=== PATIENT | male | born 1955 | race Caucasian/White ===

== ENCOUNTER → 2019-12-30 13:33 | Outpatient (BNVA) | payer MEDICARE, MEDICAID, SELFPAY | PROVIDERS: Visit Provider Family Medicine Adult Medicine | DX: M54.12 Radiculopathy, cervical region (principal); M47.816 Spondylosis without myelopathy or radiculopathy, lumbar region; Z79.891 Long term (current) use of opiate analgesic | CPT/HCPCS: 99214 ==

== ENCOUNTER → 2020-02-01 13:42 | Outpatient (BNVA) | payer MEDICARE, MEDICAID, SELFPAY | PROVIDERS: PCP Nurse Practitioner Family; Visit Provider Family Medicine Adult Medicine | DX: M47.816 Spondylosis without myelopathy or radiculopathy, lumbar region (principal); Z79.891 Long term (current) use of opiate analgesic | CPT/HCPCS: 99212 ==

== ENCOUNTER 2020-02-18 10:45 | Day surgery (SDC) | payer MEDICARE, MEDICAID, SELFPAY ==
[2020-02-15 09:26] VITALS: BMI 28.3
--- NOTE | 2020-02-17 09:06 | HO.ANESPROP2 ---
Documented by User: Lisa White 02/17/20 09:07 HPI - Anesthesia Eval Consult details Narrative: 64yo M for Diagnostic Medial Branch Block, Levels L3,L4,DR,L5 (BILATERAL) [facility] Past Medical History Medical History Cervical radiculopathy COPD (chronic obstructive pulmonary disease) Depression GERD (gastroesophageal reflux disease) Lumbar spondylosis Family History Family History Father Asthma Mother Cancer Son No problems noted. Brother Alive and well Brother Alive and well Brother Alive and well Brother Alive and well Brother Alive and well Brother Alive and well Brother Alive and well Sister Alive and well Sister Alive and well Sister Alive and well Surgical History Surgical History H/O colonoscopy History of lung biopsy Hx of inguinal hernia repair Hx of umbilical hernia repair Social History Social History Household Members: Spouse Alcohol intake: never Smoking Status: Former smoker Tobacco Type: Cigarette Smoked in Last 30 Days: No Smoking Quit Date: age 43 Use of substances other than those prescribed or required for medical reasons: No Advance Directives Information Provided: No Recently lost weight without trying: No Meds Allergies Allergy/AdvReac Type Severity Reaction Status Date / Time cyclobenzaprine Allergy Intermediate Confusion Verified 02/15/20 09:36 [From Flexeril] Home Medications Medication Instructions Recorded Confirmed Type duloxetine 30 mg capsule,delayed 30 mg PO DAILY 12/27/19 02/15/20 History release fluoxetine 40 mg capsule 40 mg PO DAILY 12/27/19 02/15/20 History omeprazole 40 mg capsule,delayed 40 mg PO DAILY 12/27/19 02/15/20 History release oxcarbazepine 300 mg tablet 300 mg PO BID 12/27/19 02/18/20 History albuterol sulfate [ProAir HFA] 2 puff INHALATION Q4-6H PRN 02/15/20 02/15/20 History fluticasone propionate [Flovent 2 puff PO BID 02/15/20 02/18/20 History HFA] oxycodone-acetaminophen 1 tab PO Q8H 02/15/20 02/18/20 History Exam Exam Date and Time: February 17, 2020905 Height,Weight and Vital Signs: Height 5 ft 9 in Weight 87.09 kg Assessment and Plan Assessment Anesthesia Assessment: Chart Reviewed Documented by User: Florentin Mccarthy MD 02/18/20 13:22 [facility] Past Medical History Medical History Cervical radiculopathy COPD (chronic obstructive pulmonary disease) Depression GERD (gastroesophageal reflux disease) Lumbar spondylosis Family History Family History Father Asthma Mother Cancer Son No problems noted. Brother Alive and well Brother Alive and well Brother Alive and well Brother Alive and well Brother Alive and well Brother Alive and well Brother Alive and well Sister Alive and well Sister Alive and well Sister Alive and well Surgical History Surgical History H/O colonoscopy History of lung biopsy Hx of inguinal hernia repair Hx of umbilical hernia repair Social History Social History Household Members: Spouse Alcohol intake: never Smoking Status: Former smoker Tobacco Type: Cigarette Smoked in Last 30 Days: No Smoking Quit Date: age 43 Use of substances other than those prescribed or required for medical reasons: No Advance Directives Information Provided: No Recently lost weight without trying: No Meds Allergies Allergy/AdvReac Type Severity Reaction Status Date / Time cyclobenzaprine Allergy Intermediate Confusion Verified 02/15/20 09:36 [From Flexeril] Home Medications Medication Instructions Recorded Confirmed Type duloxetine 30 mg capsule,delayed 30 mg PO DAILY 12/27/19 02/15/20 History release fluoxetine 40 mg capsule 40 mg PO DAILY 12/27/19 02/15/20 History omeprazole 40 mg capsule,delayed 40 mg PO DAILY 12/27/19 02/15/20 History release oxcarbazepine 300 mg tablet 300 mg PO BID 12/27/19 02/18/20 History albuterol sulfate [ProAir HFA] 2 puff INHALATION Q4-6H PRN 02/15/20 02/15/20 History fluticasone propionate [Flovent 2 puff PO BID 02/15/20 02/18/20 History HFA] oxycodone-acetaminophen 1 tab PO Q8H 02/15/20 02/18/20 History Exam Airway Mallampati Class: II TM Dist: >3cm Neck ROM: Limited Denture: Upper Heart: rrr Assessment and Plan Assessment Anesthesia Assessment: Anesthesia Plan Discussed and Chart Reviewed Final Anesthetic Review NPO: Yes ASA Class: III Final Preanesthetic Review: No Changes in Pt Med Stat, Meds/Allgs Chart Reviewed, Consent Obtained/Reviewed and Anes Risks/Benef Reviewed Patient Risk: Intermediate Procedure Risk: Low Anesthetic Plan Anesthetic Plan: MAC: Disposition: Standard PACU
--- NOTE | 2020-02-18 08:11 | MHC.SHP ---
Pre-Procedural Eval Section A The patient is an INPATIENT: No The History & Physical has been completed within 30 days and I have reviewed it.: No Section B Chief Complaint: Lumbar Spondylosis Details of Present Illness: As above Relevant Family History (Specify if Yes): No Relevant Social History: None Present Medications: None Medical History: No relevant PMH History of Previous Operations: No relevant previous surgery Allergies: Allergies Allergy/AdvReac Type Severity Reaction Status Date / Time cyclobenzaprine Allergy Intermediate Confusion Verified 02/15/20 09:36 [From Flexeril] Review of Systems Sugical H&P ROS: Negative: Constitution, Cardiovascular, Respiratory, Neurological, Psychiatric, Hem-Onc, Allergic/Immunologic, Gastrointestinal, Genitourinary, Musculoskeletal, Integumentary, Endocrine and Eyes/Ears/Nose/Throat Exam Surgical H&P Exam: Normal: HEENT, Normal: Heart, Normal: Lungs, Normal: Extremities, Normal: Abdomen, Normal: Skin and Normal: Neurological Plan Diagnosis/Plan: Unchanged Patient has been examined and remains a candidate for the planned procedure
--- NOTE | 2020-02-18 08:12 | PM.OP ---
Brief Operative Note Date of Service: 02/18/20 Pre-op diagnosis: spondylosis lumbar spine Post-op diagnosis: same Procedure: diagnostic medial branch block L3-L4 dorsal ramus L5 Implants: none Surgeon: Ramesh Ibarra MD Anesthesia: MAC Estimated blood loss (mL): 0 Pathology: none sent Disposition: PACU
--- NOTE | 2020-02-18 08:13 | W.PM.OPN ---
Operative Note Operative Note Date of Service: 02/18/20 Narrative: Informed consent was explained to the patient. All questions were explained and answered. The patient was taken inside the operating room where she was positioned prone on the operating table. [place] [employer] monitors were applied. Patient was deeply sedated. Opioids were avoided during the sedation. The patient was taken inside of the operating room where she was positioned prone operating table. Time-out was performed delineating correct site, side, the nature of the procedure, patient's allergy, preoperative antibiotic if needed. All operating room staff was participating in OR time-out procedure. The lower back was prepped with ChloraPrep and draped with sterile towels. Sterilely draped C-arm was brought over the operating field and sq picture of L4-and L5 vertebra and S1 AREA were delineated on the screen. Point of interest were delineated as connection of superior articular process of L4 and L5 vertebra bilaterally with corresponding transverse processes as well as connection of the sacral alae bilaterally with superior articular process of S1. The projection of the point of interest to the skin were injected with the small amount of local anesthetic lidocaine 2% 1-1.5 cc. After that 22 gauge regular spinal needles were driven to the point of interest in tunnel vision fashion. After needles gently contacted the bone at the point of interests the needle was injected with small amount of bupivacaine 0.5%-1cc. Upon completion of the injections needles were removed and sterile dressings were applied patient was awaken and taking outside of the operating room to recovery room where she recovered uneventfully. She went home without immediate complications.
--- NOTE | 2020-02-18 08:14 | P.HPSUR_ITS ---
Pre-Procedural Eval Section B Chief Complaint: Lumbar Spondylosis Details of Present Illness: as above Relevant Family History (Specify if Yes): No Relevant Social History: None Present Medications: None Medical History: No relevant PMH Allergies: Allergies Allergy/AdvReac Type Severity Reaction Status Date / Time cyclobenzaprine Allergy Intermediate Confusion Verified 02/15/20 09:36 [From Flexeril] Review of Systems Sugical H&P ROS: Negative: Constitution, Cardiovascular, Respiratory, Neurological, Psychiatric, Hem-Onc, Allergic/Immunologic, Gastrointestinal, Genitourinary, Musculoskeletal, Integumentary, Endocrine and Eyes/Ears/Nose/Throat Exam Surgical H&P Exam: Normal: HEENT, Normal: Heart, Normal: Lungs, Normal: Extrem ities, Normal: Abdomen, Normal: Skin and Normal: Neurological Plan Diagnosis/Plan: Unchanged Patient has been examined and remains a candidate for the planned procedure
[2020-02-18 11:30] VITALS: BP 129/70; PULSE 60; RESP 16; TEMP 36.5; O2SAT 94
[2020-02-18] MEDS: Lactated Ringers 1,000 ML 100 ML IVCONT (11:50)
--- NOTE | 2020-02-18 13:00 | FL_ITS ---
EXAMINATION: XR FLUOROSCOPY WITH IMAGES CLINICAL INFORMATION: Diagnostic medial branch blocks. COMPARISON: None. TECHNIQUE: Fluoroscopy performed by Dr. Ramesh Ibarra. Fluoroscopy time: 0.6 minutes DAP: 8.8 Gycm2 Images: 6 FINDINGS: There are bilateral spinal needles overlying outer aspect bilateral L3, L4, and L5 neural foramina. There is contrast seen in the respective nerve sheaths with some transforaminal epidural extension. No vascular communication. FL/FL guidance in OR IMPRESSION: Fluoroscopy for pain management procedures.
[2020-02-18 13:33] VITALS: BP 117/70; PULSE 63; RESP 12; TEMP 36.3; O2SAT 97
--- NOTE | 2020-02-18 13:37 | PM.OP ---
Brief Operative Note Date of Service: 02/18/20 Pre-op diagnosis: spondylosis lumbar spine Post-op diagnosis: same Procedure: bilateral L3-L4 dorsal ramus L5 medial branch block diagnostic with Marcaine 0.5% no steroids Implants: none Surgeon: Ramesh Ibarra MD Anesthesia: MAC Estimated blood loss (mL): 0 Condition: stable Disposition: PACU
--- NOTE | 2020-02-18 13:38 | W.PM.OPN ---
Operative Note Operative Note Date of Service: 02/18/20 Narrative: after obtaining informed consent patient was taking side the operating room where he was positioned prone on the operating table. [employer] [place] [employer] monitors were applied patient was deeply sedated. Time-out was performed delineating The patient's name date of correct site and side of the procedure need for antibiotics risk of fire.. All operating room staff was participating timeout. Lower back of the patient was prepped with ChloraPrep and draped with utility drapes. C-arm was brought over the operating field and sq picture of L4 and L5 vertebra as were demonstrated on the screen. The point of interest were delineated as connection of superior articular processes of L4 bilaterally with corresponding transverse process as well as connection of superior articular process of L5 bilaterally with corresponding transverse process as well as connection of the superior articular process of S1 bilaterally with sacral alae . The injection of the small amount of lidocaine to the skin in the projection of the point of interest to the skin was performed. After that 22 gauge 3-1/2 inch needle was driven to were the points of interests in tunnel vision fashion. When needle gently contacted the bone contrast injection was performed delineating no intra thecal and no intravascular injection of the contrast. After that small amount of bupivacaine 0.5% no more than 1 cc was injected into each needle position. upon completion of the injections needle was withdrawn and sterile dressing was applied. The patient tolerated procedure well. He was taking outside of the operating room to PACU where he recovered uneventfully. He went home without immediate complications.
[2020-02-18 13:48] VITALS: BP 133/68; PULSE 61; RESP 16; O2SAT 97
[2020-02-18 14:03] VITALS: BP 133/77; PULSE 60; RESP 16; TEMP 36.1; O2SAT 95
--- NOTE | 2020-02-18 16:36 | P.OP_ITS ---
Operative Note Operative Note Date of Service: 02/18/20 Narrative: Informed consent was explained to the patient. All questions were explained and answered. The patient was taken inside the operating room where she was positioned prone on the operating table. [place] [employer] monitors were applied. Patient was deeply sedated. Opioids were avoided during the sedation. The patient was taken inside of the operating room where she was positioned prone operating table. Time-out was performed delineating correct site, side, the nature of the procedure, patient's allergy, preoperative antibiotic if needed. All operating room staff was participating in OR time-out procedure. The lower back was prepped with ChloraPrep and draped with sterile towels. Sterilely draped C-arm was brought over the operating field and sq picture of L4-and L5 vertebra and S1 AREA were delineated on the screen. Point of interest were delineated as connection of superior articular process of L4 and L5 vertebra bilaterally with corresponding transverse processes as well as connec tion of the sacral alae bilaterally with superior articular process of S1. The projection of the point of interest to the skin were injected with the small amount of local anesthetic lidocaine 2% 1-1.5 cc. After that 22 gauge regular spinal needles were driven to the point of interest in tunnel vision fashion. After needles gently contacted the bone at the point of interests the needle was injected with small amount of bupivacaine 0.5%-1cc. Upon completion of the injections needles were removed and sterile dressings were applied patient was awaken and taking outside of the operating room to recovery room where she recovered uneventfully. She went home without immediate complications.
--- NOTE | 2020-02-18 16:36 | MHC.SHP ---
Pre-Procedural Eval Section B Chief Complaint: Lumbar Spondylosis Allergies: Allergies Allergy/AdvReac Type Severity Reaction Status Date / Time cyclobenzaprine Allergy Intermediate Confusion Verified 02/15/20 09:36 [From Flexeril] Plan Patient has been examined and remains a candidate for the planned procedure
--- NOTE | 2020-02-18 16:38 | W.PM.OPN ---
Operative Note Operative Note Date of Service: 02/18/20 Narrative: Informed consent was explained to the patient. All questions were explained and answered. The patient was taken inside the operating room where he was positioned prone on the operating table. [place] [employer] monitors were applied. Patient was deeply sedated. Opioids were avoided during the sedation. Time-out was performed delineating correct site, side, the nature of the procedure, patient's allergy, preoperative antibiotic if needed. All operating room staff was participating in OR time-out procedure. The lower back was prepped with ChloraPrep and draped with sterile towels. Sterilely draped C-arm was brought over the operating field and sq picture of L4-and L5 vertebra and S1 AREA were delineated on the screen. Point of interest were delineated as connection of superior articular process of L4 and L5 vertebra bilaterally with corresponding transverse processes as well as connection of the sacral alae bilaterally with superior articular process of S1. The projection of the point of interest to the skin were injected with the small amount of local anesthetic lidocaine 2% 1 cc. After that 22 gauge regular spinal needles were driven to the point of interest in tunnel vision fashion. After needles gently contacted the bone at the point of interests the needle was injected with small amount of bupivacaine 0.5%-1cc. Upon completion of the injections needles were removed and sterile dressings were applied patient was awaken and taking outside of the operating room to recovery room where she recovered uneventfully. He went home without immediate complications.
== END 2020-02-18 14:37 | disposition home or self-care (01) ==
PROVIDERS: PCP Nurse Practitioner Family; Visit Provider Anesthesiology
PROC: (CPT 64493; principal; 2020-02-18 12:10)
DX: M47.816 Spondylosis without myelopathy or radiculopathy, lumbar region (principal); J44.9 Chronic obstructive pulmonary disease, unspecified; M79.7 Fibromyalgia
CPT/HCPCS: 64493; 64494; 64495; J2250; Q9967

== ENCOUNTER → 2020-02-23 11:46 | Outpatient (BNVA) | payer MEDICARE, MEDICAID, SELFPAY | PROVIDERS: PCP Nurse Practitioner Family; Visit Provider Nurse Practitioner Family | DX: M47.816 Spondylosis without myelopathy or radiculopathy, lumbar region (principal); Z98.890 Other specified postprocedural states | CPT/HCPCS: Q3014 ==

== ENCOUNTER → 2020-04-04 13:33 | Outpatient (BNVA) | payer MEDICARE, MEDICAID, SELFPAY | PROVIDERS: PCP Nurse Practitioner Family; Visit Provider Family Medicine Adult Medicine | DX: M47.816 Spondylosis without myelopathy or radiculopathy, lumbar region (principal); M54.12 Radiculopathy, cervical region | CPT/HCPCS: 99212 ==

== ENCOUNTER 2020-04-07 12:43 | Day surgery (SDC) | payer MEDICARE, MEDICAID, SELFPAY ==
[2020-04-04 10:30] VITALS: BMI 29.5
--- NOTE | 2020-04-06 10:14 | HO.ANESPROP2 ---
Documented by User: Lisa White 04/06/20 10:17 HPI - Anesthesia Eval Consult details Narrative: 64yo M for Bilateral Medial Branch Radiofrequency AB,bilateral L3,L4,DR,L5 s/p diagnostic MBB with MAC 01/2020 chronic opioids [facility] Past Medical History Medical History Anxiety Cervical radiculopathy COPD (chronic obstructive pulmonary disease) Depression GERD (gastroesophageal reflux disease) History of neck pain Lumbar spondylosis Family History Family History Father Asthma Mother Cancer Son No problems noted. Brother Alive and well Brother Alive and well Brother Alive and well Brother Alive and well Brother Alive and well Brother Alive and well Brother Alive and well Sister Alive and well Sister Alive and well Sister Alive and well Surgical History Surgical History H/O colonoscopy History of lung biopsy Hx of inguinal hernia repair Hx of umbilical hernia repair Social History Social History Household Members: Spouse Alcohol intake: never Smoking Status: Former smoker Tobacco Type: Cigarette Smoking Quit Date: 1999 Use of substances other than those prescribed or required for medical reasons: No Advance Directives: No Advance Directives Information Provided: No Advance Directives on File: No Meds Allergies Allergy/AdvReac Type Severity Reaction Status Date / Time cyclobenzaprine Allergy Intermediate Confusion Verified 04/04/20 13:55 [From Flexeril] Home Medications Medication Instructions Recorded Confirmed Type fluoxetine 40 mg capsule 40 mg PO DAILY 12/27/19 04/04/20 History omeprazole 40 mg capsule,delayed 40 mg PO DAILY 12/27/19 04/04/20 History release oxcarbazepine 300 mg tablet 300 mg PO BID 12/27/19 04/04/20 History albuterol sulfate [ProAir HFA] 2 puff INHALATION Q4-6H PRN 02/15/20 04/04/20 History fluticasone propionate [Flovent 2 puff PO BID 02/15/20 04/04/20 History HFA] Exam Exam Date and Time: April 06, 2020 1014 Height,Weight and Vital Signs: Height 5 ft 9 in Weight 90.718 kg Assessment and Plan Assessment Anesthesia Assessment: Chart Reviewed Documented by User: Valeria Yusuf 04/07/20 14:14 [facility] Past Medical History Medical History Anxiety Cervical radiculopathy COPD (chronic obstructive pulmonary disease) Depression GERD (gastroesophageal reflux disease) History of neck pain Lumbar spondylosis Family History Family History Father Asthma Mother Cancer Son No problems noted. Brother Alive and well Brother Alive and well Brother Alive and well Brother Alive and well Brother Alive and well Brother Alive and well Brother Alive and well Sister Alive and well Sister Alive and well Sister Alive and well Surgical History Surgical History H/O colonoscopy History of lung biopsy Hx of inguinal hernia repair Hx of umbilical hernia repair Social History Social History Household Members: Spouse Alcohol intake: never Smoking Status: Former smoker Tobacco Type: Cigarette Smoking Quit Date: 1999 Use of substances other than those prescribed or required for medical reasons: No Advance Directives: No Advance Directives Information Provided: No Advance Directives on File: No Meds Allergies Allergy/AdvReac Type Severity Reaction Status Date / Time cyclobenzaprine Allergy Intermediate Confusion Verified 04/04/20 13:55 [From Flexeril] Home Medications Medication Instructions Recorded Confirmed Type fluoxetine 40 mg capsule 40 mg PO DAILY 12/27/19 04/04/20 History omeprazole 40 mg capsule,delayed 40 mg PO DAILY 12/27/19 04/04/20 History release oxcarbazepine 300 mg tablet 300 mg PO BID 12/27/19 04/04/20 History albuterol sulfate [ProAir HFA] 2 puff INHALATION Q4-6H PRN 02/15/20 04/04/20 History fluticasone propionate [Flovent 2 puff PO BID 11/17/20 01/05/21 History HFA] Exam Airway Mallampati Class: II TM Dist: >3cm Neck ROM: Full Denture: Upper Loose/Missing/Broken Teeth: No Heart: RRR Lungs: CTA Assessment and Plan Assessment Anesthesia Assessment: Anesthesia Plan Discussed and Chart Reviewed Final Anesthetic Review NPO: Yes ASA Class: II Final Preanesthetic Review: Meds/Allgs Chart Reviewed, Consent Obtained/Reviewed and Anes Risks/Benef Reviewed Patient Risk: Intermediate Procedure Risk: Intermediate Anesthetic Plan Anesthetic Plan: MAC: Disposition: Standard PACU
--- NOTE | 2020-04-07 | FL_ITS ---
EXAMINATION: XR FLUOROSCOPY WITH IMAGES CLINICAL INFORMATION: Low back pain. COMPARISON: None. TECHNIQUE: Fluoroscopy performed by Dr. Ramesh Ibarra. Fluoroscopy time: 1.0 minutes DAP: 4.365 mGycm2 Images: 2 FINDINGS: There are needle positioned on either side of L4, L5 and S1 pedicles for medial branch radiofrequency ablation. Visualized L3, L4 and L5 vertebral heights are normal. There is mild loss of L3-L4 disc height with moderate left lateral bridging osteophyte. No lytic process. FL/FL guidance in OR IMPRESSION: Fluoroscopy provided to Dr. Ibarra for bilateral medial branch radiofrequency ablation.
--- NOTE | 2020-04-07 13:03 | MHC.SHP ---
Pre-Procedural Eval Section A The patient is an INPATIENT: No The History & Physical has been completed within 30 days and I have reviewed it.: No Section B Chief Complaint: spondylosis w/o myelopathy or radiculopathy,lumbar Details of Present Illness: as above Relevant Family History (Specify if Yes): No Relevant Social History: None Present Medications: see Short Stay Collaborative assessment Medical History: No relevant PMH History of Previous Operations: No relevant previous surgery Allergies: Allergies Allergy/AdvReac Type Severity Reaction Status Date / Time cyclobenzaprine Allergy Intermediate Confusion Verified 04/04/20 13:55 [From Flexeril] Review of Systems Sugical H&P ROS: Negative: Constitution, Cardiovascular, Respiratory, Neurological, Psychiatric, Hem-Onc, Allergic/Immunologic, Gastrointestinal, Genitourinary, Musculoskeletal, Integumentary, Endocrine and Eyes/Ears/Nose/Throat Exam Surgical H&P Exam: Normal: HEENT, Normal: Heart, Normal: Lungs, Normal: Extremities, Normal: Abdomen, Normal: Skin and Normal: Neurological Plan Diagnosis/Plan: Unchanged I have reviewed the history and physical and performed a pertinent physical examination on my patient. No changes have occurred unless specified.
--- NOTE | 2020-04-07 14:15 | MHC.SHP ---
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 Relevant Family History (Specify if Yes): No Relevant Social History: None Present Medications: see Short Stay Collaborative assessment Medical History: No relevant PMH History of Previous Operations: No relevant previous surgery Allergies: Allergies Allergy/AdvReac Type Severity Reaction Status Date / Time cyclobenzaprine Allergy Intermediate Confusion Verified 04/04/20 13:55 [From Flexeril] Review of Systems Sugical H&P ROS: Negative: Constitution, Cardiovascular, Respiratory, Neurological, Psychiatric, Hem-Onc, Allergic/Immunologic, Gastrointestinal, Genitourinary, Musculoskeletal, Integumentary, Endocrine and Eyes/Ears/Nose/Throat Exam Surgical H&P Exam: Normal: HEENT, Normal: Heart, Normal: Lungs, Normal: Extremities, Normal: Abdomen, Normal: Skin and Normal: Neurological Plan Diagnosis/Plan: Unchanged I have reviewed the history and physical and performed a pertinent physical examination on my patient. No changes have occurred unless specified. I will be performing bilateral L3-L4 dorsal ramus L5 medial branch radiofrequency ablation.
[2020-04-07] MEDS: Lactated Ringers 1,000 ML 100 ML IVCONT (14:16)
[2020-04-07 14:19] VITALS: BP 139/80; PULSE 59; RESP 16; TEMP 37.1; O2SAT 95
[2020-04-07 15:16] VITALS: BP 90/50; PULSE 59; RESP 12; TEMP 36.4; O2SAT 97
--- NOTE | 2020-04-07 15:25 | PM.OP ---
Brief Operative Note Date of Service: 04/07/20 Pre-op diagnosis: Spondylosis lumbar spine without myelopathy or radiculopathy Post-op diagnosis: same Procedure: Radiofrequency ablation of the L3-L4 dorsal ramus L5 bilateral medial branch nerves. Implants: None Surgeon: Ramesh Ibarra MD Anesthesia: MAC Estimated blood loss (mL): 1 Pathology: none sent Condition: stable Disposition: PACU
--- NOTE | 2020-04-07 15:26 | W.PM.OPN ---
Operative Note Operative Note Date of Service: 04/07/20 Narrative: After explaining informed consent to the patient delineating all risks and benefits as well as alternatives of the procedure, he was taking to the operating room where he was positioned prone on the operating table. [employer] monitors were applied. Patient was deeply sedated. Time-out was performed delineating correct site and side of the procedure. Need of antibiotics DVT prophylaxis risk of fire date of of the patient in full name were out loud pronounced during the time-out. Patient's lower back was prepped with ChloraPrep and draped with utility towels. C-arm was brought of the operating field and sq picture of L4-5 vertebra as as well as sacral bone were obtained of the street. Procedure was started on the right side where the points of interest were delineated as connection of superior articular process of L4 vertebra with corresponding transverse process, connection of superior articular process of L5 vertebra with corresponding transverse process, as well as connection of the superior articular process of S1 with sacral alae. 18 gauge 10 cm long radiofrequency cannulas were inserted through the skin sequentially until each 1 of the cannulas reached above described point of interests. When needle gently contacted the bones the testing meeting all probes were inserted into the each of the needle a and motor testing was performed. At L4 vertebra motor no response was noted. The needle was readjusted. After that solution of bupivacaine 0.5% mixed with trace amount of Kenalog 1-1.5 cc was injected into each needle. After that energy of 90? centigrade was applied for 90 seconds to radiofrequency cannulas. After that the radiofrequency cannulas were turned to 180? and application of energy was repeated. Upon completion of the right-sided procedure left-sided procedure was performed in the same very fashion. During testing no motor response was found on the left side. Same energy application with the same time intervals was applied. Same in local anesthetic with trace amount of Kenalog was injected into each needle. Upon completion of the injections the needles were removed sterile Band-Aids were applied on each side. The patient tolerated procedure well. He was awaken taken to recovery room where he recovered uneventfully. He went home without immediate complications.
[2020-04-07 15:31] VITALS: BP 113/65; PULSE 59; RESP 14; O2SAT 97
[2020-04-07 15:46] VITALS: BP 131/76; PULSE 67; RESP 16; O2SAT 95
[2020-04-07 16:01] VITALS: BP 133/73; PULSE 80; RESP 18; TEMP 36.4; O2SAT 96
[2020-04-07] MEDS: oxyCODONE HCl Immed Release 5 MG TABLET 10 MG PO (16:06)
== END 2020-04-07 16:21 | disposition home or self-care (01) ==
PROVIDERS: PCP Nurse Practitioner Family; Visit Provider Anesthesiology
PROC: (CPT 64635; principal; 2020-04-07 14:40)
DX: M47.816 Spondylosis without myelopathy or radiculopathy, lumbar region (principal); J44.9 Chronic obstructive pulmonary disease, unspecified; Z79.899 Other long term (current) drug therapy; F32.9 Major depressive disorder, single episode, unspecified; Z79.51 Long term (current) use of inhaled steroids; Z87.891 Personal history of nicotine dependence; Z88.8 Allergy status to other drugs, medicaments and biological substances
CPT/HCPCS: 64635; 64636 ×2; J2250; J2370; J3300

== ENCOUNTER → 2020-04-27 09:09 | Outpatient (BNVA) | payer MEDICARE, MEDICAID, SELFPAY | PROVIDERS: PCP Nurse Practitioner Family; Visit Provider Anesthesiology | DX: M47.816 Spondylosis without myelopathy or radiculopathy, lumbar region (principal) | CPT/HCPCS: Q3014 ==

== ENCOUNTER → 2020-06-01 13:35 | Outpatient (BNVA) | payer MEDICARE, MEDICAID, SELFPAY | PROVIDERS: PCP Nurse Practitioner Family; Visit Provider Family Medicine Adult Medicine | DX: M47.816 Spondylosis without myelopathy or radiculopathy, lumbar region (principal); M54.12 Radiculopathy, cervical region; Z79.899 Other long term (current) drug therapy | CPT/HCPCS: 99212 ==

== ENCOUNTER → 2020-06-30 15:04 | Outpatient (BNVA) | payer MEDICARE, MEDICAID, SELFPAY | PROVIDERS: PCP Nurse Practitioner Family; Visit Provider Nurse Practitioner Family | DX: M47.816 Spondylosis without myelopathy or radiculopathy, lumbar region (principal); M54.12 Radiculopathy, cervical region | CPT/HCPCS: 99212 ==

== ENCOUNTER → 2020-07-31 13:30 | Outpatient (BNVA) | payer MEDICARE, MEDICAID, SELFPAY | PROVIDERS: PCP Nurse Practitioner Family; Visit Provider Nurse Practitioner Family | DX: M47.816 Spondylosis without myelopathy or radiculopathy, lumbar region (principal); M54.12 Radiculopathy, cervical region; Z79.899 Other long term (current) drug therapy | CPT/HCPCS: 99212 ==

== ENCOUNTER → 2020-08-21 08:47 | Outpatient (BNVA) | payer MEDICARE, MEDICAID, SELFPAY | PROVIDERS: PCP Nurse Practitioner Family; Visit Provider Anesthesiology | DX: M47.816 Spondylosis without myelopathy or radiculopathy, lumbar region (principal); M54.12 Radiculopathy, cervical region | CPT/HCPCS: Q3014 ==

== ENCOUNTER → 2020-08-29 10:09 | Outpatient (BNVA) | payer MEDICARE, MEDICAID, SELFPAY | PROVIDERS: PCP Nurse Practitioner Family; Visit Provider Family Medicine Adult Medicine | DX: M47.816 Spondylosis without myelopathy or radiculopathy, lumbar region (principal); M54.12 Radiculopathy, cervical region; Z79.899 Other long term (current) drug therapy | CPT/HCPCS: 99212 ==

== ENCOUNTER → 2020-09-28 11:09 | Outpatient (BNVA) | payer MEDICARE, MEDICAID, SELFPAY | PROVIDERS: PCP Nurse Practitioner Family; Visit Provider Family Medicine Adult Medicine | DX: M47.816 Spondylosis without myelopathy or radiculopathy, lumbar region (principal); M54.12 Radiculopathy, cervical region | CPT/HCPCS: 99212 ==

== ENCOUNTER → 2020-10-26 15:03 | Outpatient (BNVA) | payer MEDICARE, MEDICAID, SELFPAY | PROVIDERS: PCP Nurse Practitioner Family; Visit Provider Family Medicine Adult Medicine | DX: Z51.81 Encounter for therapeutic drug level monitoring (principal); M47.816 Spondylosis without myelopathy or radiculopathy, lumbar region; M54.12 Radiculopathy, cervical region | CPT/HCPCS: 99212 ==

== ENCOUNTER 2020-11-01 13:34 | Outpatient (REF) | payer MEDICARE, MEDICAID, SELFPAY ==
--- NOTE | ~2020-11-01 | MR_ITS ---
EXAMINATION: MR LUMBAR SPINE WITHOUT CONTRAST CLINICAL INFORMATION: Spondylosis without myelopathy or radiculopathy. COMPARISON: None TECHNIQUE: MRI of the lumbar spine was obtained using routine sequences without contrast. FINDINGS: The lumbar vertebral bodies maintain normal heights. There is mild retrolisthesis of L3 on L4. There is multilevel intervertebral disc height loss appears moderate at L3-L4, moderate to severe at L5-S1 and less advanced at other levels. Endplate edema is seen at L3-L4 and L4-L5. The distal spinal cord appears normal. The conus medullaris terminates normally at the L1 level. Edema is seen within the right-sided posterior paraspinal musculature at the L5 through sacral levels. SPINAL LEVELS: L1-L2: No posterior disc abnormality. No spinal canal or neural foraminal stenosis. L2-L3: Mild disc bulging. No spinal canal or neural foraminal stenosis. L3-L4: Disc bulging with ligamentum flavum infolding and facet arthropathy. Mild spinal canal stenosis with bilateral subarticular stenosis. Left foraminal protrusion results in compression of the exiting left L3 nerve root. L4-L5: Disc bulging with ligamentum flavum infolding moderate facet arthropathy. Mild spinal canal stenosis with right more than left subarticular stenosis with compression of the traversing right L5 nerve root. Right foraminal protrusion results in mild compression of the exiting right L4 nerve root. L5-S1: Disc bulging with central protrusion. Moderate facet arthropathy. Mild to moderate bilateral neural foraminal stenosis with mild compression of the exiting L5 nerve roots. MR/MR lumbar spine wo con IMPRESSION: Multilevel degenerative spondylotic changes. At L3-L4 there is left foraminal protrusion causing compression of the exiting left L3 nerve root. At L4-L5 there is bilateral subarticular stenosis asymmetrically worse on the right compression of the traversing right L5 nerve root. Right foraminal protrusion compresses the exiting right L4 nerve root. At L5-S1 there is mild/moderate bilateral neural foraminal stenosis with mild compression of the exiting L5 nerve roots.
== END 2020-11-01 13:35 | disposition home or self-care (01) ==
LOC: HO.MRI 13:34
PROVIDERS: PCP Nurse Practitioner Family; Visit Provider Anesthesiology
DX: M47.816 Spondylosis without myelopathy or radiculopathy, lumbar region (principal); M54.12 Radiculopathy, cervical region
CPT/HCPCS: 72148

== ENCOUNTER → 2020-12-01 12:56 | Outpatient (BNVA) | payer MEDICARE, MEDICAID, SELFPAY | PROVIDERS: PCP Nurse Practitioner Family; Visit Provider Nurse Practitioner Family | DX: M47.816 Spondylosis without myelopathy or radiculopathy, lumbar region (principal); M54.12 Radiculopathy, cervical region | CPT/HCPCS: 99212 ==

== ENCOUNTER → 2020-12-26 10:15 | Outpatient (BNVA) | payer MEDICARE, MEDICAID, SELFPAY | PROVIDERS: Visit Provider Family Medicine Adult Medicine | DX: Z51.81 Encounter for therapeutic drug level monitoring (principal); M47.816 Spondylosis without myelopathy or radiculopathy, lumbar region; M54.12 Radiculopathy, cervical region | CPT/HCPCS: 99212 ==

== ENCOUNTER → 2021-01-23 10:09 | Outpatient (BNVA) | payer MEDICARE, MEDICAID, SELFPAY | PROVIDERS: Visit Provider Family Medicine Adult Medicine | DX: Z51.81 Encounter for therapeutic drug level monitoring (principal); M47.816 Spondylosis without myelopathy or radiculopathy, lumbar region; M54.12 Radiculopathy, cervical region | CPT/HCPCS: 99212 ==

== ENCOUNTER → 2021-02-12 11:53 | Outpatient (BNVA) | payer MEDICARE, MEDICAID, SELFPAY | PROVIDERS: PCP Nurse Practitioner Family; Visit Provider Anesthesiology | DX: M47.816 Spondylosis without myelopathy or radiculopathy, lumbar region (principal); M54.12 Radiculopathy, cervical region; M51.36 Other intervertebral disc degeneration, lumbar region | CPT/HCPCS: Q3014 ==

== ENCOUNTER → 2021-03-01 10:08 | Outpatient (BNVA) | payer MEDICARE, MEDICAID, SELFPAY | PROVIDERS: PCP Nurse Practitioner Family; Visit Provider Family Medicine Adult Medicine | DX: Z51.81 Encounter for therapeutic drug level monitoring (principal); F11.20 Opioid dependence, uncomplicated; M47.816 Spondylosis without myelopathy or radiculopathy, lumbar region; M54.12 Radiculopathy, cervical region | CPT/HCPCS: 99212 ==

== ENCOUNTER 2021-04-06 11:39 | Day surgery (SDC) | payer MEDICARE, MEDICAID, SELFPAY ==
[2021-03-28 14:23] VITALS: BMI 28.8
--- NOTE | 2021-04-05 17:00 | HO.ANESPROP2 ---
HPI - Anesthesia Eval Consult details Narrative: 65yo M for Bilateral Left L3-L4 and Right L4-L5 Transforaminal Epidural Steroid Injections s/p medial branch RAB 03/2020 with MAC [facility] Active Problems Active Problems: All Active Problems (Updated 02/12/21 @ 12:16 by Ramesh Ibarra MD) Disc degeneration, lumbar (Acute) Lumbar spondylosis (Acute) Cervical radiculopathy (Acute) Past Medical History Medical History Anxiety Cervical radiculopathy COPD (chronic obstructive pulmonary disease) Depression Disc degeneration, lumbar GERD (gastroesophageal reflux disease) History of neck pain Lumbar spondylosis Family History Family History Father Asthma Mother Cancer Son No problems noted. Brother Alive and well Brother Alive and well Brother Alive and well Brother Alive and well Brother Alive and well Brother Alive and well Brother Alive and well Sister Alive and well Sister Alive and well Sister Alive and well Surgical History Surgical History H/O colonoscopy History of lung biopsy History of surgery Hx of inguinal hernia repair Hx of umbilical hernia repair Social History Social History Household Members: Spouse Household Members Other:: STOPPED WORK AROUND 2012 DUE TO SPINAL PAIN Alcohol intake: never Patient Tobacco Use Status: Former Tobacco user Quit Date: 31 yrs ago Meds Allergies Allergy/AdvReac Type Severity Reaction Status Date / Time cyclobenzaprine Allergy Intermediate Confusion Verified 03/01/21 10:54 [facility] Home Medications Medication Instructions Recorded Confirmed Last Taken Type fluoxetine 40 mg capsule 40 mg PO DAILY 12/27/19 03/28/21 04/06/21 06:00 History omeprazole 40 mg capsule,delayed 40 mg PO DAILY 12/27/19 03/28/21 04/06/21 06:00 History release oxcarbazepine 300 mg tablet 300 mg PO BID 12/27/19 03/28/21 04/06/21 06:00 History albuterol sulfate 90 mcg/actuation 2 puff INHALATION Q4-6H PRN 02/15/20 03/28/21 Unknown History aerosol inhaler (ProAir HFA) fluticasone propionate 110 2 puff PO BID 02/15/20 03/28/21 02/18/20 02:00 History mcg/actuation HFA aerosol inhaler (Flovent HFA) Exam Exam Date and Time: April 05, 2021 1700 Height,Weight and Vital Signs: Height 5 ft 8 in Weight 86.183 kg Assessment and Plan Assessment Anesthesia Assessment: Chart Reviewed
--- NOTE | ~2021-04-06 | FL_ITS ---
EXAMINATION: XR FLUOROSCOPY WITH IMAGES CLINICAL INFORMATION: Low back pain COMPARISON: Lumbar spine 04/10/2020 TECHNIQUE: Fluoroscopy performed by Dr. Ramesh Ibarra. Fluoroscopy time: 0.8 minutes DAP: 4.49 mGycm2 Images: 2 FINDINGS: There is needle positioned inferior to right L4 pedicle with contrast opacifying the soft tissues. There is mild loss of L3-L4 disc height. No lytic or sclerotic process seen. FL/FL guidance in OR IMPRESSION: Fluoroscopy was provided to referring physician for pain management.
[2021-04-06 12:52] VITALS: BP 139/62; PULSE 63; RESP 16; TEMP 36.7; O2SAT 95
--- NOTE | 2021-04-06 12:59 | P.HPSUR_ITS ---
Pre-Procedural Eval Section A Date of Service: 04/06/21 The patient is an INPATIENT: No Changes since office visit: Yes Patient answered all questions The History & Physical has been completed within 30 days and I have reviewed it.: No Section B Chief Complaint: Disc Degeneration, Lumbar Details of Present Illness: as above Relevant Family History (Specify if Yes): No Relevant Social History: None Present Medications: see Short Stay Collaborative assessment Medical History: No relevant PMH History of Previous Operations: No relevant previous surgery Allergies: Allergies Allergy/AdvReac Type Severity Reaction Status Date / Time cyclobenzaprine Allergy Intermediate Confusion Verified 03/01/21 10:54 [From Flexeril] Review of Systems Sugical H&P ROS: Negative: Constitution, Cardiovascular, Respiratory, Neurological, Psychiatric, Hem-Onc, Allergic/Immunologic, Gastrointestinal, Genitourinary, Musculoskeletal, Integumentary, Endocrine and Eyes/Ears/Nos e/Throat Exam Surgical H&P Exam: Normal: HEENT, Normal: Heart, Normal: Lungs, Normal: Extremities, Normal: Abdomen, Normal: Skin and Normal: Neurological Plan Diagnosis/Plan: Unchanged I have reviewed the history and physical and performed a pertinent physical examination on my patient. No changes have occurred unless specified.
[2021-04-06] MEDS: Lactated Ringers 1,000 ML 100 ML IVCONT (13:07)
--- NOTE | 2021-04-06 13:14 | P.CONAN_ITS ---
[facility] Active Problems Active Problems: All Active Problems (Updated 02/12/21 @ 12:16 by Ramesh Ibarra MD) Disc degeneration, lumbar (Acute) Lumbar spondylosis (Acute) Cervical radiculopathy (Acute) Past Medical History Medical History Anxiety Cervical radiculopathy COPD (chronic obstructive pulmonary disease) Depression Disc degeneration, lumbar GERD (gastroesophageal reflux disease) History of neck pain Lumbar spondylosis Family History Family History Father Asthma Mother Cancer Son No problems noted. Brother Alive and well Brother Alive and well Brother Alive and well Brother Alive and well Brother Alive and well Brother Alive and well Brother Alive and well Sister Alive and well Sister Alive and well Sister Alive and well Family history of problems with anesthesia: No Surgical History Surgical History H/O colonoscopy History of lung biopsy History of surgery Hx of inguinal hernia repair Hx of umbilical hernia repair History of Problems with Anesthesia: No Social History Social History Household Members: Spouse Household Members Other:: STOPPED WORK AROUND 2012 DUE TO SPINAL PAIN Alcohol intake: never Patient Tobacco Use Status: Former Tobacco user Quit Date: 31 yrs ago Use of substances other than those prescribed or required for medical reasons: No Are you DNR?: No Advance Directives: No Advance Directives Information Provided: Yes Meds Allergies Allergy/AdvReac Type Severity Reaction Status Date / Time cyclobenzaprine Allergy Intermediate Confusion Verified 03/01/21 10:54 [From Flexeril] Active Medications: Current Medications Albuterol Sulfate (Albuterol Sulfate (0.083%) 2.5 Mg/3 Ml Vial.Neb) 2.5 mg INHALE ONCE PRN PRN Reason: Shortness of Breath/Wheezing Lactated Ringer's (Lr) 1,000 mls @ 100 mls/hr IVCONT .Q10H TIM Last Admin: 04/06/21 13:07 Dose: 100 mls/hr Documented by: Home Medications Medication Instructions Recorded Confirmed Last Taken Type fluoxetine 40 mg capsule 40 mg PO DAILY 12/27/19 03/28/21 04/06/21 06:00 History omeprazole 40 mg capsule,delayed 40 mg PO DAILY 12/27/19 03/28/21 04/06/21 06:00 History release oxcarbazepine 300 mg tablet 300 mg PO BID 12/27/19 03/28/21 04/06/21 06:00 His tory albuterol sulfate 90 mcg/actuation 2 puff INHALATION Q4-6H PRN 02/15/20 03/28/21 Unknown History aerosol inhaler (ProAir HFA) fluticasone propionate 110 2 puff PO BID 02/15/20 03/28/21 02/18/20 02:00 History mcg/actuation HFA aerosol inhaler (Flovent HFA) Exam Exam Date and Time: April 06, 2021 1314 Height,Weight and Vital Signs: Height 5 ft 8 in Weight 86.183 kg Last Vital Signs Temp 98.1 F 04/06/21 12:52 Pulse 63 04/06/21 12:52 Resp 16 04/06/21 12:52 BP 139/62 04/06/21 12:52 Pulse Ox 95 04/06/21 12:52 Airway Mallampati Class: II TM Dist: >3cm Neck ROM: Full Denture: Upper Assessment and Plan Assessment Anesthesia Assessment: Anesthesia Plan Discussed and Chart Reviewed Final Anesthetic Review Family History of Problems with Anesthesia: No History of Problems with Anesthesia: No NPO: Yes ASA Class: II Final Preanesthetic Review: No Changes in Pt Med Stat, Meds/Allgs Chart Reviewed, Consent Obtained/Reviewed and Anes Risks/Benef Reviewed Patient Risk: Intermediate Procedure Risk: Low Anesthetic Plan Anesthetic Plan: MAC: Disposition: Standard PACU
--- NOTE | 2021-04-06 13:47 | W.PM.OPN ---
Operative Note Operative Note Date of Service: 02/18/20 Narrative: after obtaining informed consent patient was taken inside the operating room where he was positioned prone on the operating table. [place] [employer] monitors were applied patient was moderately sedated. Time-out was performed delineating The patient's name date of correct site and side of the procedure need for antibiotics risk of fire.. All operating room staff was participating timeout. Lower back of the patient was prepped with ChloraPrep and draped with utility drapes. C-arm was brought over the operating field and sq picture of L3 and L4 vertebra as were demonstrated on the screen. Attention was concentrated first on the L3 level. tilting C-arm ipsilaterally to the right the picture of the right L3 pedicle was demonstrated on the screen. 3 mm below the lowest point on the silhouette of the pedicle was chosen as the start of the injection. The projection of the point of interest to the skin was injected with small amount of lidocaine 1% and after that 22 gauge 5 in needle was inserted through the skin and advanced to the patient's right L3-L4 foramina under anterior posterior oblique and lateral views. When needle tip entered the silhouette of the spinal column injection of the contrast was performed delineating intravascular spread of the contrast. the needle was repositioned after that in the projection of the superior right articular process of L4 vertebra. The needle was driven to the lateral border of the right superior process of the L4 vertebra. When needle gently contacted the bone it was deviated slighty lateral and after that back to medial direction to circumnavigate the needle around the right superior process of the L4 vertebra. After that on AP square image view injection of the contrast was performed delineating perineural and epidural spread of the contrast. After that injection of lidocain 4 mls 1% mixed with kenalog was 40 mg performed. No intrathecal and no intravascular uptake was noted on the screen. After that small amount of lidocaine 1% mixed with Kenalog 40 mg was injected into the needle. Upon completion of the injection the needle was removed and attention was concentrated on the L5 vertebra. tilting C-arm ipsilaterally to the right the picture of the left L4 pedicle was demonstrated on the screen. 3 mm below the lowest point on the silhouette of the pedicle was chosen as the start of the injection. The projection of the point of interest to the skin was injected with small amount of lidocaine 1% and after that 22 gauge 5 in needle was inserted through the skin and advanced to the patient's left foramina under anterior posterior oblique and lateral views. When needle tip entered the silhouette of the spinal column injection of the contrast was performed delineating no intravascular and no intrathecal spread of the contrast. spread of the contrast was seen in the perinural and anterior epidural fashion, after that 3 mls of lidicain 1% mixed with kenalog 40 mg was performed into the needle. Upon completion of the injection the needle was removed and sterile bandaids were applied. The patient tolerated the procedure well he was taken outside of the operating room to the recovery room .
[2021-04-06 14:30] VITALS: BP 180/78; PULSE 81; RESP 15; TEMP 37.7; O2SAT 96
[2021-04-06 14:45] VITALS: BP 123/63; PULSE 70; RESP 16; O2SAT 95
--- NOTE | 2021-04-06 14:45 | P.BOP_ITS ---
Brief Operative Note Date of Service: 04/06/21 Pre-op diagnosis: disc degeneration lumbar Post-op diagnosis: same Procedure: L3-L4 right transforaminal epidural steroid injection a and L4-5 left transforaminal epidural steroid injection. Surgeon: Ramesh Ibarra MD Anesthesia: MAC Was an As400 Programmer Analyst used for this Procedure?: No Estimated blood loss (mL): 2 Pathology: none sent Condition: stable Disposition: PACU
[2021-04-06 15:00] VITALS: BP 121/59; PULSE 71; RESP 16; TEMP 37.2; O2SAT 94
== END 2021-04-06 15:29 | disposition home or self-care (01) ==
LOC: HO.SSS 11:41
PROVIDERS: PCP Nurse Practitioner Family; Visit Provider Anesthesiology
PROC: 3E0R33Z Introduction of Anti-inflammatory into Spinal Canal, Percutaneous Approach (ICD-10-PCS; CPT 64483; principal; 2021-04-06 13:40)
DX: M51.36 Other intervertebral disc degeneration, lumbar region (principal); M51.26 Other intervertebral disc displacement, lumbar region; M47.816 Spondylosis without myelopathy or radiculopathy, lumbar region; M54.12 Radiculopathy, cervical region; J44.9 Chronic obstructive pulmonary disease, unspecified; F32.9 Major depressive disorder, single episode, unspecified; Z88.8 Allergy status to other drugs, medicaments and biological substances; Z79.899 Other long term (current) drug therapy
CPT/HCPCS: 64483; 64484; J2250; J3010; J3300; Q9967

== ENCOUNTER → 2021-05-16 10:59 | Outpatient (BNVA) | payer MEDICARE, MEDICAID, SELFPAY | PROVIDERS: PCP Nurse Practitioner Family; Visit Provider Anesthesiology | DX: M47.816 Spondylosis without myelopathy or radiculopathy, lumbar region (principal); M54.12 Radiculopathy, cervical region; M51.36 Other intervertebral disc degeneration, lumbar region | CPT/HCPCS: Q3014 ==

== ENCOUNTER 2021-10-05 07:15 | Day surgery (SDC) | payer MEDICARE, MEDICAID, SELFPAY ==
--- NOTE | 2021-10-04 10:10 | HO.ANESPROP2 ---
Documented by User: Lisa White NP 10/04/21 10:15 HPI - Anesthesia Eval Consult details Narrative: 66yo M for Lumbar Spinal Cord Stimulation Trial s/p lumbar epidural injection 03/2021 with MAC [facility] Active Problems Active Problems: All Active Problems (Updated 02/12/21 @ 12:16 by Ramesh Ibarra MD) Disc degeneration, lumbar (Acute) Lumbar spondylosis (Acute) Cervical radiculopathy (Acute) Past Medical History Medical History Anxiety Cervical radiculopathy COPD (chronic obstructive pulmonary disease) Depression Disc degeneration, lumbar GERD (gastroesophageal reflux disease) History of neck pain Lumbar spondylosis Family History Family History Father Asthma Mother Cancer Son No problems noted. Brother Alive and well Brother Alive and well Brother Alive and well Brother Alive and well Brother Alive and well Brother Alive and well Brother Alive and well Sister Alive and well Sister Alive and well Sister Alive and well Family history of problems with anesthesia: No Surgical History Surgical History H/O colonoscopy History of lung biopsy History of surgery Hx of inguinal hernia repair Hx of umbilical hernia repair History of Problems with Anesthesia: No Social History Social History Household Members: Spouse Household Members Other:: STOPPED WORK AROUND 2012 DUE TO SPINAL PAIN Alcohol intake: never Patient Tobacco Use Status: Former Tobacco user Quit Date: 31 yrs ago Smoked in Last 30 Days: No Use of substances other than those prescribed or required for medical reasons: No Are you DNR?: No Advance Directives: No Advance Directives Information Provided: Yes Recently lost weight without trying: No Nutrition Risks: No Nutritional Risk Meds Allergies Allergy/AdvReac Type Severity Reaction Status Date / Time cyclobenzaprine Allergy Intermediate Confusion Verified 05/16/21 11:01 [From Flexeril] Home Medications Medication Instructions Recorded Confirmed Last Taken Type fluoxetine 40 mg capsule 40 mg PO DAILY 12/27/19 03/28/21 10/05/21 History omeprazole 40 mg capsule,delayed 40 mg PO DAILY 12/27/19 03/28/21 04/06/21 06:00 History release oxcarbazepine 300 mg tablet 300 mg PO BID 12/27/19 03/28/21 04/06/21 06:00 History albuterol sulfate 90 mcg/actuation 2 puff inhalation Q4-6H PRN 02/15/20 03/28/21 10/05/21 History aerosol inhaler (ProAir HFA) Shortness Of Breath fluticasone propionate 110 2 puff PO BID 02/15/20 03/28/21 02/18/20 02:00 History mcg/actuation HFA aerosol inhaler (Flovent HFA) Exam Exam Date and Time: October 04, 2021 1010 Assessment and Plan Assessment Anesthesia Assessment: Chart Reviewed Final Anesthetic Review Family History of Problems with Anesthesia: No History of Problems with Anesthesia: No Documented by User: Bharath Ward MD 10/05/21 09:23 [facility] Past Medical History Medical History Anxiety Cervical radiculopathy COPD (chronic obstructive pulmonary disease) Depression Disc degeneration, lumbar GERD (gastroesophageal reflux disease) History of neck pain Lumbar spondylosis Family History Family History Father Asthma Mother Cancer Son No problems noted. Brother Alive and well Brother Alive and well Brother Alive and well Brother Alive and well Brother Alive and well Brother Alive and well Brother Alive and well Sister Alive and well Sister Alive and well Sister Alive and well Surgical History Surgical History H/O colonoscopy History of lung biopsy History of surgery Hx of inguinal hernia repair Hx of umbilical hernia repair Social History Social History Household Members: Spouse Household Members Other:: STOPPED WORK AROUND 2012 DUE TO SPINAL PAIN Alcohol intake: never Patient Tobacco Use Status: Former Tobacco user Quit Date: 31 yrs ago Smoked in Last 30 Days: No Use of substances other than those prescribed or required for medical reasons: No Are you DNR?: No Advance Directives: No Advance Directives Information Provided: Yes Recently lost weight without trying: No Nutrition Risks: No Nutritional Risk Meds Allergies Allergy/AdvReac Type Severity Reaction Status Date / Time cyclobenzaprine Allergy Intermediate Confusion Verified 05/16/21 11:01 [From Flexeril] Home Medications Medication Instructions Recorded Confirmed Last Taken Type fluoxetine 40 mg capsule 40 mg PO DAILY 12/27/19 03/28/21 10/05/21 History omeprazole 40 mg capsule,delayed 40 mg PO DAILY 12/27/19 03/28/21 04/06/21 06:00 History release oxcarbazepine 300 mg tablet 300 mg PO BID 12/27/19 03/28/21 04/06/21 06:00 History albuterol sulfate 90 mcg/actuation 2 puff inhalation Q4-6H PRN 02/15/20 03/28/21 10/05/21 History aerosol inhaler (ProAir HFA) Shortness Of Breath fluticasone propionate 110 2 puff PO BID 02/15/20 03/28/21 02/18/20 02:00 History mcg/actuation HFA aerosol inhaler (Flovent HFA) Exam Airway Mallampati Class: II TM Dist: >3cm Denture: Upper and Lower Heart: rrr Lungs: clear Assessment and Plan Final Anesthetic Review NPO: Yes ASA Class: III Final Preanesthetic Review: No Changes in Pt Med Stat, Meds/Allgs Chart Reviewed, Consent Obtained/Reviewed and Anes Risks/Benef Reviewed Patient Risk: Intermediate Procedure Risk: Low Anesthetic Plan Anesthetic Plan: MAC: Disposition: Standard PACU
--- NOTE | ~2021-10-05 | FL_ITS ---
EXAMINATION: XR FLUOROSCOPY WITH IMAGES CLINICAL INFORMATION: Spinal stimulator trial. COMPARISON: None. TECHNIQUE: Fluoroscopy performed by: Dr. Ramesh Ibarra FLUOROSCOPY TIME: 4.7 minutes DAP: 34.9 uGy-cm2 FLUOROSCOPY IMAGES: 3 FINDINGS: On images obtained of lower dorsal spine there are 2 spinal stimulators seen in the posterior epidural space in the lower thoracic spine. Visualized bones are grossly unremarkable. FL/FL guidance in OR IMPRESSION: Fluoroscopy was provided to referring physician for spinal stimulator implant trial.
[2021-10-05 08:15] VITALS: BMI 29.5
--- NOTE | 2021-10-05 08:19 | PC.NURSE ---
MD MENDOZA BY BEDSIDE EVALUATING PATIENT. STATES HE HAS BEEN COUGHING FOR THE LAST COUPLE OF MONTHS. CLEAR PRODUCTIVE SPUTUM PER PATIENT. NO COUGHING NOW. CLEAR THROUGHOUT.
[2021-10-05 08:29] VITALS: BP 151/76; PULSE 65; RESP 16; TEMP 36.5; O2SAT 98
[2021-10-05] MEDS: Lactated Ringers 1,000 ML 100 ML IVCONT (08:59)
--- NOTE | 2021-10-05 09:04 | MHC.SHP ---
Pre-Procedural Eval Section A Date of Service: 10/05/21 The patient is an INPATIENT: No Changes since office visit: Yes Patient answered all questions The History & Physical has been completed within 30 days and I have reviewed it.: No Section B Chief Complaint: disc degeneration Details of Present Illness: as above Relevant Family History (Specify if Yes): No Relevant Social History: None Present Medications: see Short Stay Collaborative assessment Medical History: No relevant PMH History of Previous Operations: No relevant previous surgery Allergies: Allergies Allergy/AdvReac Type Severity Reaction Status Date / Time cyclobenzaprine Allergy Intermediate Confusion Verified 05/16/21 11:01 [From Flexeril] Review of Systems Sugical H&P ROS: Negative: Constitution, Cardiovascular, Respiratory, Neurological, Psychiatric, Hem-Onc, Allergic/Immunologic, Gastrointestinal, Genitourinary, Musculoskeletal, Integumentary, Endocrine and Eyes/Ears/Nose/Throat Exam Surgical H&P Exam: Normal: HEENT, Normal: Heart, Normal: Lungs, Normal: Extremities, Normal: Abdomen, Normal: Skin and Normal: Neurological Plan Diagnosis/Plan: Unchanged I have reviewed the history and physical and performed a pertinent physical examination on my patient. No changes have occurred unless specified.
[2021-10-05 10:40] VITALS: BP 142/72; PULSE 74; RESP 16; TEMP 36.9; O2SAT 95
--- NOTE | 2021-10-05 10:43 | PM.OP ---
Brief Operative Note Date of Service: 10/05/21 Pre-op diagnosis: chronic pain syndrome, disc degeneration lumbar, spondylosis lumbar Post-op diagnosis: same Procedure: trial of Nevro SCS Implants: none permanent Surgeon: Ramesh Ibarra MD Anesthesia: GETA Was an Finishing Tunnel Operator used for this Procedure?: No Estimated blood loss (mL): 1 Pathology: none sent Condition: stable Disposition: PACU
--- NOTE | 2021-10-05 10:46 | P.OP_ITS ---
Operative Note Operative Note Date of Service: 10/05/21 Narrative: Sunil is a pleasant 66 y.o. male who came today into the operating room for trial of? Nevro spinal cord stimulator for the treatment of Diabetic peripheral neuropathy. Preoperatively patient received cefasolin 2 g approximately 30 minutes before the procedure. After obtaining informed consent the patient was brought to the operating room, he was positioned prone on operating table, [employer] m onitors were applied and patient was moderately sedated.? ?Time-out was performed delineating correct site, side, the nature of the procedure, patient's allergy, preoperative antibiotic if needed.? All operating room staff was participating in OR time-out procedure. Patient's entire back was prepped with DuraPrep twice and draped with full body fenestrated drape.? Sterilely draped C-arm was brought over operating field and square picture of T12 L1 L2? L3 vertebrae as were demonstrated on the screen.? A set of ribs at the 1st lumbar ( 13th thoracic ) vertebra is noted on the screen.? Attention FIRST? was concentrated on the L1-L2 epidural interspace.?The location of the projection of the right pedicle center of the? L3 vertebra was found on the skin using C-arm.? This location was injected with mixture of lidocaine 2% and Marcaine 0.25% 5 cc.? After that 11 blade was used to make a shaun on the skin.? 10 cm 14 gauge? introducer epidural needle was inserted through the shaun and advanced to? L1-L2 epidural interspace.? The advancement of the needle was performed on anterior posterior and lateral views.? Guitar wire and loss of resistance technique were used to locate epidural space.? When guitar wire was spread in the epidural fashion, epidural lead was inserted through the skin and it was advanced to ? top of T8 position? SLIGHTLY? right of the MIDLINE.? After that location of the projection of the LEFT pedicle center of the L3 vertebra was found on the skin using C-arm.? This location was injected with mixture of lidocaine 2% and Marcaine 0.25% 5 cc.? After that 11 blade was used to make a shaun on the skin.? 10 cm 14 gauge curved introducer epidural needle was inserted through the shaun and advanced to L1-L2 epidural interspace.? The advancement of the needle was performed on anterior posterior and lateral views.? Guitar wire and loss of resistance technique were used to locate epidural space.? When guitar wire was spread in the epidural fashion, epidural lead was inserted through the needle and advanced to the middle of T9 epidural interspace?.? It was inserted slightly? left to the existing electrode. The position of the leads in the posterior epidural space was checked on the lateral view . Impedance was checked and was satisfactory .The needles were withdrawn, the stylette wires were removed from the epidural leads.? The anchoring devices were dislodged on the leads and advanced to the level of the skin.? The anchoring devices were sutured with two 0-0 silk sutures per each anchor to the skin of the patient. The central fixation screw of each anchor was rotated until three clicks were heard. The leads were connected to testing device.? Bacitracin ointment was applied to the entrance point of bilateral needles.? Sterile d ressing was applied to the patient's back.? The testing device was also glued to the patient's back.? the patient was transferred on the stretcher awaken and transferred to PACU for immediate recovery.
[2021-10-05 10:55] VITALS: BP 113/70; PULSE 68; RESP 16; TEMP 36.9; O2SAT 97
== END 2021-10-05 11:45 | disposition home or self-care (01) ==
PROVIDERS: PCP Nurse Practitioner Family; Visit Provider Anesthesiology
PROC: (CPT 63650; principal; 2021-10-05 09:00)
DX: M47.816 Spondylosis without myelopathy or radiculopathy, lumbar region (principal); M51.36 Other intervertebral disc degeneration, lumbar region; G89.4 Chronic pain syndrome; E11.42 Type 2 diabetes mellitus with diabetic polyneuropathy; M54.50 Low back pain, unspecified; M54.12 Radiculopathy, cervical region; F41.8 Other specified anxiety disorders; J44.9 Chronic obstructive pulmonary disease, unspecified; K21.9 Gastro-esophageal reflux disease without esophagitis; Z79.899 Other long term (current) drug therapy; Z88.8 Allergy status to other drugs, medicaments and biological substances; Z87.891 Personal history of nicotine dependence; Z98.890 Other specified postprocedural states
CPT/HCPCS: 63650 ×2; C1713; C1897; J0690; J2250; J2795; J3010

== ENCOUNTER → 2021-10-11 10:16 | Outpatient (BNVA) | payer MEDICARE, MEDICAID, SELFPAY | PROVIDERS: PCP Nurse Practitioner Family; Visit Provider Anesthesiology | DX: M47.816 Spondylosis without myelopathy or radiculopathy, lumbar region (principal); M54.12 Radiculopathy, cervical region; M51.36 Other intervertebral disc degeneration, lumbar region | CPT/HCPCS: 99212 ==